=== PATIENT | male | born 1975 | race Caucasian/White ===

== ENCOUNTER 2022-01-07 16:18 | Emergency (ER) | payer BC, SELFPAY ==
--- NOTE | ~2022-01-07 | CT_ITS ---
EXAMINATION: CT SOFT TISSUE NECK WITH CONTRAST CLINICAL INFORMATION: Neck swelling, concern for abscess COMPARISON: None. TECHNIQUE: Following the administration of 60 mL of Omnipaque 300 intravenous contrast, helical imaging was performed in the axial plane with generation of coronal and sagittal reformatted images. This CT examination was performed using dose optimization techniques as appropriate, variously including the following: *Automated exposure control. *Adjustment of mA and/or kV according to patient size (this includes techniques or standardized protocols for targeted exams where dose is matched to indication/reason for exam; i.e. extremities or head). *Use of iterative reconstruction technique. DLP: 908 mGy-cm. FINDINGS: Nasopharynx/skull base: The fat planes of the skull base and soft tissues of the nasopharynx are unremarkable. The mastoids are well aerated. Mild maxillary sinus mucosal thickening. The temporomandibular joints are normal. Suprahyoid neck: The oropharynx and oral cavity appear unremarkable. Normal appearance of the parotid glands. The bilateral submandibular glands appear enlarged with heterogeneous enhancement with slightly increased hyperenhancement on the left. No evidence of obstructing sialolith. There are adjacent soft tissue inflammatory changes with thickening of the bilateral platysma muscles and subcutaneous stranding in the anterior subcutaneous fat of the suprahyoid neck in the submandibular/submental region. No discrete rim-enhancing fluid collection is identified. Infrahyoid neck: The hypopharynx and larynx are unremarkable. No aerodigestive tract mass. Thyroid: The thyroid gland is normal. Lymph nodes: There is no cervical chain lymphadenopathy. Prominent number of nonpathologically enlarged submental and submandibular lymph nodes are likely reactive. Lung apices: The partially visualized lung apices are clear. Vascular structures: No hemodynamically significant stenosis, dissection, or occlusion. Osseous structures: The osseous structures are intact without suspicious focal lesion. Other: The imaged portions of the brain parenchyma are unremarkable. CT/CT soft tissue neck w IV con IMPRESSION: 1. Bilateral submandibular gland enlargement and heterogeneous enhancement, likely reflecting sialoadenitis. No evidence of obstructing sialolithiasis. 2. Inflammatory changes in the submandibular/submental soft tissues of the suprahyoid neck which may reflect cellulitic change. No evidence of abscess.
[2022-01-07 16:50] VITALS: BP 151/116; PULSE 92; RESP 18; TEMP 36.6; O2SAT 97; BMI 36.9
--- NOTE | 2022-01-07 17:01 | ED_ITS ---
HPI - General Adult General Chief complaint: General Medical <NARDA Cramer - Last Filed: 01/07/22 17:59> Stated complaint: swollen lymph nodes <NARDA Cramer - Last Filed: 01/07/22 17:59> Time Seen by Provider: 01/07/22 17:01 <NARDA Cramer - Last Filed: 01/07/22 17:59> Source: patient <NARDA Cramer Last Filed: 01/07/22 17:59> Mode of arrival: ambulatory <NARDA Cramer Last Filed: 01/07/22 17:59> Limitations: no limitations <NARDA Cramer Last Filed: 01/07/22 17:59> History of Present Illness HPI narrative: Patient is a 46 year old assigned male at with no reported medical history presenting to the emergency department today with swollen lymph nodes in his neck. Patient states that he was seen at an Urgent Care last week for a sore throat and was positive for influenza A. Patient states that he was given Tamiflu and was feeling better but his throat is still bothering him. Patient states that he noticed he had node swelling in his neck, left more than right. Patient states that he went back to the Urgent Care and they recommended the he come to the Emergency Department to be evaluated and possibly get his neck scanned. Patient denies any difficulty swallowing or hoarseness of his voice. Patient denies any dizziness, lightheadedness, abdominal pain, nausea, vomiting, fever, chills, blurry vision, double vision, loss of vision, chest pain, difficulty breathing, shortness of breath, back pain, night sweats, pain with urination, increased urinary frequency, increased urinary urgency, blood in his urine or stool, syncope or a near syncopal episode, recent trauma or falls, bowel incontinence, bladder incontinence, bowel retention, bladder retention, or any other complaints at this time. <NARDA Cramer Last Filed: 01/07/22 17:59> Onset (ago): day(s) <NARDA Cramer - Last Filed: 01/07/22 17:59> Location: neck <NARDA Cramer Last Filed: 01/07/22 17:59> Radiation: non-radiation <NARDA Cramer - Last Filed: 01/07/22 17:59> Severity: mild <NARDA Cramer - Last Filed: 01/07/22 17:59> Severity scale (1-10): 3 <NARDA Cramer - Last Filed: 01/07/22 17:59> Relieving factors: none <NARDA Cramer - Last Filed: 01/07/22 17:59> Exacerbating factors: none <NARDA Cramer - Last Filed: 01/07/22 17:59> Associated symptoms: denies other symptoms <NARDA Cramer - Last Filed: 01/07/22 17:59> Treatments prior to arrival: none <NARDA Cramer - Last Filed: 01/07/22 17:59> Related Data Home medications: Previous Rx's Medication Instructions Recorded cephalexin 500 mg capsule 500 mg PO Q6H 7 days #28 caps 01/07/22 doxycycline hyclate 100 mg tablet 100 mg PO BID #14 tabs 01/07/22 <NARDA Cramer - Last Filed: 01/07/22 17:59> Allergies/adverse reactions: Allergies Allergy/AdvReac Type Severity Reaction Status Date / Time No Known Allergies Allergy Unverified 11/04/19 16:07 [No Known Allergies*] <NARDA Cramer - Last Filed: 01/07/22 17:59> Review of Systems Constitutional: Constitutional: Reports no additional constitutional complaints, Denies chills, Denies fever(s) and Denies night sweats <NARDA Cramer - Last Filed: 01/07/22 17:59> Eyes: Eyes: Reports no additional eye complaints, Denies blurry vision, Denies change in vision, Denies diplopia, Denies eye discharge, Denies loss of vision and Denies eye pain <NARDA Cramer - Last Filed: 01/07/22 17:59> ENT: Denies dizziness and Reports sore throat <NARDA Cramer - Last Filed: 01/07/22 17:59> Comments: neck lymph node swelling <NARDA Cramer - Last Filed: 01/07/22 17:59> Cardiovascular: Cardiovascular: Reports no additional cardiovascular complaints, Denies chest pain, Denies lightheadedness, Denies Loss of Consciousness and Denies dyspnea <NARDA Cramer Last Filed: 01/07/22 17:59> Respiratory: Respiratory: Reports no additional respiratory complaints and Denies dyspnea <NARDA Cramer Last Filed: 01/07/22 17:59> Gastrointestinal: Gastrointestinal: Reports no additional gastrointestinal complaints, Denies abdominal pain, Denies melena, Denies hematochezia, Denies change in bowel habits and Denies change in stool character <NARDA Cramer Last Filed: 01/07/22 17:59> Genitourinary: Genitourinary: Reports no additional male genitourinary compl aints, Denies hematuria, Denies oliguria, Denies difficulty urinating, Denies dysuria, Denies urinary frequency, Denies urinary hesitancy, Denies urinary incontinence and Denies urinary urgency <NARDA Cramer Last Filed: 01/07/22 17:59> Musculoskeletal: Musculoskeletal: Reports no additional musculoskeletal c omplaints, Denies numbness and Denies tingling <NARDA Cramer Last Filed: 01/07/22 17:59> Neurologic: Denies dizziness, Denies loss of vision, Denies numbness and Denies tingling <NARDA Cramer Last Filed: 01/07/22 17:59> Psychiatric: Psychiatric: Reports no additional psychiatric complaints <NARDA Cramer Last Filed: 01/07/22 17:59> Endocrine: Endocrine: Reports no additional endocrine complaints <NARDA Cramer Last Filed: 01/07/22 17:59> Hematologic/Lymphatic: Hematologic/Lymphatic: Reports no additional hematologic/lymphatic complaints <NARDA Cramer Last Filed: 01/07/22 17:59> Allergic/Immunologic: Allergic/Immunologic: Reports no additional allergic/immunologic complaints <NARDA Cramer Last Filed: 01/07/22 17:59> PMFSH Past Medical History Attestation statement: The following information was validated with the patient. <NARDA Cramer Last Filed: 01/07/22 17:59> Source: old records reviewed <NARDA Cramer Last Filed: 01/07/22 17:59> Social History Social History: Social History Advance Directives: No Advance Directives Information Provided: Yes <NARDA Cramer - Last Filed: 01/07/22 17:59> Physical Exam ED Vital Signs: Vital Signs - 24 hr 01/07/22 16:50 Temperature 97.8 F Pulse Rate 92 Respiratory Rate 18 Blood Pressure 151/116 H Pulse Oximetry 97 Oxygen Delivery Method Room Air BMI result Body Mass Index 36.9 <NARDA Cramer - Last Filed: 01/07/22 17:59> Vital Signs - 24 hr 01/07/22 16:50 Temperature 97.8 F Pulse Rate 92 Respiratory Rate 18 Blood Pressure 151/116 H Pulse Oximetry 97 Oxygen Delivery Method Room Air BMI result Body Mass Index 36.9 <NARDA Sanchez - Last Filed: 01/07/22 19:52> Const General: cooperative, no acute distress, alert and awake <NARDA Cramer - Last Filed: 01/07/22 17:59> Nutritional Appearance: well nourished <NARDA Cramer - Last Filed: 01/07/22 17:59> Orientation/consciousness: patient oriented x3 <NARDA Cramer - Last Filed: 01/07/22 17:59> Limitations: no limitations <NARDA Cramer - Last Filed: 01/07/22 17:59> HENMT Head: Yes normal to inspection and Yes atraumatic <NARDA Cramer - Last Filed: 01/07/22 17:59> Ears: hearing grossly normal bilaterally and external ears normal <NARDA Cramer - Last Filed: 01/07/22 17:59> General nose exam: Normal external nose present, no nasal discharge noted and no epistaxis <NARDA Cramer - Last Filed: 01/07/22 17:59> Face and sinus: Yes normal facial exam, No abrasion and No laceration <NARDA Cramer Last Filed: 01/07/22 17:59> Mouth: Normal oral and palatal mucosa present, no drooling and no muffled voice <NARDA Cramer - Last Filed: 01/07/22 17:59> Eyes General: appearance normal, both eyes and all related structures <Bonnie Alvarez PA - Last Filed: 01/07/22 17:59> Periorbital: periorbital findings normal <Bonnie Alvarez PA - Last Filed: 01/07/22 17:59> Eyelids: Yes eyelids normal <Bonnie Alvarez PA - Last Filed: 01/07/22 17:59> Conjunctivae: conjunctivae normal <Bonnie Alvarez PA - Last Filed: 01/07/22 17:59> Pupils: Equal, round and reactive pupils present <Bonnie Alvarez, PA - Last Filed: 01/07/22 17:59> EOM: EOMs intact bilaterally <Bonnie Alvarez PA - Last Filed: 01/07/22 17:59> Neck Neck: Yes normal visual inspection, Yes full ROM and Yes lymphadenopathy (bilateral, left worse than right) <Bonnie Alvarez PA - Last Filed: 01/07/22 17:59> Chest Chest palpation & inspection: normal inspection of the chest <Bonnie Alvarez PA - Last Filed: 01/07/22 17:59> Resp Effort & Inspection: normal respiratory effort and able to speak in complete sentences <Bonnie Alvarez PA - Last Filed: 01/07/22 17:59> GI Inspection: Yes normal to inspection <Bonnie Alvarez PA - Last Filed: 01/07/22 17:59> Neuro General: patient oriented x3 and moves all extremities <Bonnie Avlarez PA - Last Filed: 01/07/22 17:59> Cranial nerves: Yes Equal, round and reactive pupils present <Bonnie Alvarez PA - Last Filed: 01/07/22 17:59> Cognition (Neuro): normal cognition <Bonnie Alvarez PA - Last Filed: 01/07/22 17:59> Motor exam (neuro): 5/5 motor strength present throughout <Bonnie Alvarez PA - Last Filed: 01/07/22 17:59> Sensory Exam: Normal double simultaneous stimulation for sensation <Bonnie Alvarez PA - Last Filed: 01/07/22 17:59> Coordination: [id number] test normal <Bonnie Alvarez PA - Last Filed: 01/07/22 17:59> Extrem General: Yes normal to inspection, Yes full ROM and Yes capillary refill normal <NARDA Cramer - Last Filed: 01/07/22 17:59> Psych Appearance: grossly normal <NARDA Cramer - Last Filed: 01/07/22 17:59> Mental Status: mental status grossly normal <NARDA Cramer Last Filed: 01/07/22 17:59> Affect: normal affect <NARDA Cramer - Last Filed: 01/07/22 17:59> Attitude: cooperative <NARDA Cramer - Last Filed: 01/07/22 17:59> Thought process: Normal thought process present <NARDA Cramer Last Filed: 01/07/22 17:59> Thought content: Normal thought content present <NARDA Cramer Last Filed: 01/07/22 17:59> Insight: Good insight present (Psych) <NARDA Cramer Last Filed: 01/07/22 17:59> Course Course Course Narrative: CT scan showing 1.? Bilateral submandibular gland enlargement and heterogeneous enhancement, likely reflecting sialoadenitis. No evidence of obstructing sialolithiasis. ? 2.? Inflammatory changes in the submandibular/submental soft tissues of the suprahyoid neck which may reflect cellulitic change. No evidence of abscess Influenza is positive. Other lab work is remarkable. Given patient's swelling and CT scan findings, will start empiric antibiotics for possible developing cellulitis. His airway is patent and he is speaking normally. He was given strict return precautions to come back if anything were to get worse or he were to have any difficulty speaking or swallowing. Comfortable discharge home. Stable for DC. <NARDA Sanchez - Last Filed: 01/07/22 19:52> Medications Administered Discontinued Medications Generic Name Dose Route Start Last Admin Trade Name Freq PRN Reason Stop Dose Admin Iohexol 100 ml 01/07/22 18:22 01/07/22 18:22 Iohexol 350 Mg/Ml 100 Ml Infus..Btl IV 01/07/22 18:23 60 ml ONCE ONE Administration <NARDA Cramer Last Filed: 01/07/22 17:59> Medications Administered Discontinued Medications Generic Name Dose Route Start Last Admin Trade Name Freq PRN Reason Stop Dose Admin Iohexol 100 ml 01/07/22 18:22 01/07/22 18:22 Iohexol 350 Mg/Ml 100 Ml Infus..Btl IV 01/07/22 18:23 60 ml ONCE ONE Administration <NARDA Sanchez - Last Filed: 01/07/22 19:52> Medical Decision Making MDM Narrative Medical decision making narrative: Patient is a 46 year old assigned male at with no reported medical history presenting to the emergency department today with neck lymphadenopathy. Patient's physical exam showed cervical lymphadenopathy, left worse than right with no voice hoarseness or difficulty tolerating his own secretons. Patient's CBC was unremarkable. Patient's CMP is pending. Patient's CT soft tissue neck is pending. Patient signed out to Jojo Porter PA-C. <NARDA Cramer - Last Filed: 01/07/22 17:59> Medical Records Medical records reviewed: Yes I reviewed the patient's medical records. <NARDA Cramer - Last Filed: 01/07/22 17:59> Lab Data Lab results reviewed: Yes I reviewed the patient's lab results. <NARDA Cramer - Last Filed: 01/07/22 17:59> Result diagrams: : 01/07/22 17:31 01/07/22 17:31 <NARDA Cramer - Last Filed: 01/07/22 17:59> Labs: Lab Results 01/07/22 01/07/22 01/07/22 Range/Units 17:31 17:31 17:31 WBC 6.7 (4.8-10.8) X10*3/uL RBC 5.77 (4.60-5.80) X10*6/uL Hgb 17.2 (14.0-18.0) g/dl Hct 51.4 (42.0-52.0) % MCV 89.1 (80.0-98.0) fL MCH 29.8 (27.0-33.0) pg MCHC 33.5 (31.0-36.0) g/dl RDW 12.3 (11.0-16.0) % Plt Count 214 (160-400) X10*3/uL MPV 9.5 (9.4-12.4) fL Absolute Nucleated RBC 0.000 (0.0-0.012) X10*3/uL Nucleated RBC % (auto) 0.0 (0.0-0.2) /100WBC ESR (0-15) MM/HR Sodium (135-145) mmol/L Potassium (3.3-5.1) mmol/L Chloride (96-108) mmol/L Carbon Dioxide (22-29) mmol/L Anion Gap (12-20) BUN (9-16) mg/dL Creatinine (0.5-1.4) mg/dL Estim Creat Clear Calc Estimated GFR Random Glucose (60-115) mg/dL Calcium (8.4-10.2) mg/dL Total Bilirubin (0.0-1.0) mg/dL AST (5-37) U/L ALT (0-40) U/L Alkaline Phosphatase (39-117) U/L C-Reactive Protein (< or = 0.50) mg/dL Total Protein (6.5-8.0) g/dL Albumin (3.5-5.0) g/dL TSH (0.32-4.0) uIU/mL COVID-19 (LUCAS) Negative (Negative) COVID-19 Clin Com See Note Influenza Type A (JOVANNI) Positive A (Negative) Influenza Type B (JOVANNI) Negative (Negative) Influenza A & B Note See Note 01/07/22 01/07/22 Range/Units 17:31 17:31 WBC (4.8-10.8) X10*3/uL RBC (4.60-5.80) X10*6/uL Hgb (14.0-18.0) g/dl Hct (42.0-52.0) % MCV (80.0-98.0) fL MCH (27.0-33.0) pg MCHC (31.0-36.0) g/dl RDW (11.0-16.0) % Plt Count (160-400) X10*3/uL MPV (9.4-12.4) fL Absolute Nucleated RBC (0.0-0.012) X10*3/uL Nucleated RBC % (auto) (0.0-0.2) /100WBC ESR 8 (0-15) MM/HR Sodium 140 (135-145) mmol/L Potassium 3.9 (3.3-5.1) mmol/L Chloride 104 (96-108) mmol/L Carbon Dioxide 25 (22-29) mmol/L Anion Gap 15 (12-20) BUN 13 (9-16) mg/dL Creatinine 0.82 (0.5-1.4) mg/dL Estim Creat Clear Calc 160.5 Estimated GFR > 60 Random Glucose 86 (60-115) mg/dL Calcium 9.4 (8.4-10.2) mg/dL Total Bilirubin 0.2 (0.0-1.0) mg/dL AST 35 (5-37) U/L ALT 57 H (0-40) U/L Alkaline Phosphatase 84 (39-117) U/L C-Reactive Protein 3.27 H (< or = 0.50) mg/dL Total Protein 7.8 (6.5-8.0) g/dL Albumin 4.8 (3.5-5.0) g/dL TSH 7.08 H (0.32-4.0) uIU/mL COVID-19 (LUCAS) (Negative) COVID-19 Clin Com Influenza Type A (JOVANNI) (Negative) Influenza Type B (JOVANNI) (Negative) Influenza A & B Note <NARDA Cramer - Last Filed: 01/07/22 17:59> Lab Results 01/07/22 01/07/22 01/07/22 Range/Units 17:31 17:31 17:31 WBC 6.7 (4.8-10.8) X10*3/uL RBC 5.77 (4.60-5.80) X10*6/uL Hgb 17.2 (14.0-18.0) g/dl Hct 51.4 (42.0-52.0) % MCV 89.1 (80.0-98.0) fL MCH 29.8 (27.0-33.0) pg MCHC 33.5 (31.0-36.0) g/dl RDW 12.3 (11.0-16.0) % Plt Count 214 (160-400) X10*3/uL MPV 9.5 (9.4-12.4) fL Absolute Nucleated RBC 0.000 (0.0-0.012) X10*3/uL Nucleated RBC % (auto) 0.0 (0.0-0.2) /100WBC ESR (0-15) MM/HR Sodium (135-145) mmol/L Potassium (3.3-5.1) mmol/L Chloride (96-108) mmol/L Carbon Dioxide (22-29) mmol/L Anion Gap (12-20) BUN (9-16) mg/dL Creatinine (0.5-1.4) mg/dL Estim Creat Clear Calc Estimated GFR Random Glucose (60-115) mg/dL Calcium (8.4-10.2) mg/dL Total Bilirubin (0.0-1.0) mg/dL AST (5-37) U/L ALT (0-40) U/L Alkaline Phosphatase (39-117) U/L C-Reactive Protein (< or = 0.50) mg/dL Total Protein (6.5-8.0) g/dL Albumin (3.5-5.0) g/dL TSH (0.32-4.0) uIU/mL COVID-19 (LUCAS) Negative (Negative) COVID-19 Clin Com See Note Influenza Type A (JOVANNI) Positive A (Negative) Influenza Type B (JOVANNI) Negative (Negative) Influenza A & B Note See Note 01/07/22 01/07/22 Range/Units 17:31 17:31 WBC (4.8-10.8) X10*3/uL RBC (4.60-5.80) X10*6/uL Hgb (14.0-18.0) g/dl Hct (42.0-52.0) % MCV (80.0-98.0) fL MCH (27.0-33.0) pg MCHC (31.0-36.0) g/dl RDW (11.0-16.0) % Plt Count (160-400) X10*3/uL MPV (9.4-12.4) fL Absolute Nucleated RBC (0.0-0.012) X10*3/uL Nucleated RBC % (auto) (0.0-0.2) /100WBC ESR 8 (0-15) MM/HR Sodium 140 (135-145) mmol/L Potassium 3.9 (3.3-5.1) mmol/L Chloride 104 (96-108) mmol/L Carbon Dioxide 25 (22-29) mmol/L Anion Gap 15 (12-20) BUN 13 (9-16) mg/dL Creatinine 0.82 (0.5-1.4) mg/dL Estim Creat Clear Calc 160.5 Estimated GFR > 60 Random Glucose 86 (60-115) mg/dL Calcium 9.4 (8.4-10.2) mg/dL Total Bilirubin 0.2 (0.0-1.0) mg/dL AST 35 (5-37) U/L ALT 57 H (0-40) U/L Alkaline Phosphatase 84 (39-117) U/L C-Reactive Protein 3.27 H (< or = 0.50) mg/dL Total Protein 7.8 (6.5-8.0) g/dL Albumin 4.8 (3.5-5.0) g/dL TSH 7.08 H (0.32-4.0) uIU/mL COVID-19 (LUCAS) (Negative) COVID-19 Clin Com Influenza Type A (JOVANNI) (Negative) Influenza Type B (JOVANNI) (Negative) Influenza A & B Note <NARDA Sanchez - Last Filed: 01/07/22 19:52> Discharge Plan Discharge Clinical Impression: Lymphadenopathy, Influenza A, Sialadenitis <NARDA Cramer - Last Filed: 01/07/22 17:59> Patient Disposition: Home, Self-Care <NARDA Cramer - Last Filed: 01/07/22 17:59> Instructions: Influenza (ED), Sialoadenitis (ED) <NARDA Cramer - Last Filed: 01/07/22 17:59> Additional Instructions: Your lab workup today was unremarkable. You tested positive for influenza A. Continue Tamiflu. CT scan showed: 1.? Bilateral submandibular gland enlargement and heterogeneous enhancement, likely reflecting sialoadenitis. No evidence of obstructing sialolithiasis. ? 2.? Inflammatory changes in the submandibular/submental soft tissues of the suprahyoid neck which may reflect cellulitic change. No evidence of abscess Take the prescribed antibiotics for possible developing infection of the skin. If you develop new or worsening symptoms call 911 or come back to the ER for further evaluation. <NARDA Cramer - Last Filed: 01/07/22 17:59> Prescriptions: New doxycycline hyclate 100 mg tablet 100 mg PO BID Qty: 14 0RF cephalexin 500 mg capsule 500 mg PO Q6H 7 Days Qty: 28 0RF <NARDA Cramer - Last Filed: 01/07/22 17:59> Stand Alone Forms: Work/School Release <NARDA Cramer - Last Filed: 01/07/22 17:59>
[2022-01-07 17:37] LABS: Hematocrit 51.4 % (42.0-52.0); Hemoglobin 17.2 g/dl (14.0-18.0); Mean Corpuscular HGB Conc 33.5 g/dl (31.0-36.0); Mean Corpuscular Hemoglobin 29.8 pg (27.0-33.0); Mean Corpuscular Volume 89.1 fL (80.0-98.0); Mean Platelet Volume 9.5 fL (9.4-12.4); Platelet Count 214 X10*3/uL (160-400); Red Blood Count 5.77 X10*6/uL (4.60-5.80); Red Cell Distribution Width 12.3 % (11.0-16.0); White Blood Count 6.7 X10*3/uL (4.8-10.8)
[2022-01-07 17:57] LABS: COVID-19 Test Negative (Negative); IDNOW Serial# 9DB6401D; IDNOW Serial# BCCEAD1C; Influenza A Positive (Negative); Influenza B2 Negative (Negative)
[2022-01-07 18:09] LABS: Alanine Aminotransferase 57 U/L (0-40); Albumin Level 4.8 g/dL (3.5-5.0); Alkaline Phosphatase 84 U/L (39-117); Anion Gap 15 (12-20); Aspartate Amino Transferase 35 U/L (5-37); Bilirubin Total 0.2 mg/dL (0.0-1.0); Blood Urea Nitrogen 13 mg/dL (9-16); C Reactive Protein 3.27 mg/dL (< or = 0.50); Calcium 9.4 mg/dL (8.4-10.2); Carbon Dioxide 25 mmol/L (22-29); Chloride 104 mmol/L (96-108); Creatinine Clr Calc Pharmacy 160.5; Estimated Glomerular Filt Rate > 60; Glucose Random 86 mg/dL (60-115); Potassium 3.9 mmol/L (3.3-5.1); Sodium 140 mmol/L (135-145); Total Protein 7.8 g/dL (6.5-8.0)
[2022-01-07 18:20] LABS: Erythrocyte Sedimentation Rate 8 MM/HR (0-15)
[2022-01-07] MEDS: iohexoL 350 MG/ML 100 ML INFUS..BTL IV (18:22)
[2022-01-07 18:29] LABS: TSH reflex Free T4 7.08 uIU/mL (0.32-4.0)
[2022-01-07] MEDS: dexAMETHasone 2 MG TABLET 10 MG PO (19:56)
[2022-01-07] MEDS: Doxycycline Monohydrate 100 MG CAPSULE PO (19:57)
[2022-01-07] MEDS: cephALEXin 500 MG CAPSULE PO (19:57)
[2022-01-07 20:00] LABS: Free T4 (Free Thyroxine) 0.88 ng/dL (0.71-1.85)
== END 2022-01-07 20:01 | disposition home or self-care (01) ==
PROVIDERS: Physician Assistant Medical; Emergency Provider Internal Medicine
DX: J10.1 Influenza due to other identified influenza virus with other respiratory manifestations (principal); R59.1 Generalized enlarged lymph nodes; K11.20 Sialoadenitis, unspecified; Z20.822 Contact with and (suspected) exposure to COVID-19
CPT/HCPCS: 36415; 70491; 80053; 84439; 84443; 85027; 85652; 86140; 87502; 87635; 99282; 99284; J8540; Q9967

== ENCOUNTER 2023-07-09 19:07 | Emergency (ER) | payer BC, SELFPAY ==
[2023-07-09 20:13] VITALS: BP 142/97; PULSE 91; RESP 16; TEMP 36.8; O2SAT 96; BMI 37.3
[2023-07-10 00:20] VITALS: BP 129/90; PULSE 68; RESP 18; TEMP 36.6; O2SAT 97
--- NOTE | 2023-07-10 01:15 | ED.HA ---
HPI - Headache General Chief Complaint: Headache Stated Complaint: lump on back of neck and headaches Time Seen by Provider: 07/10/23 01:15 Source: patient Mode of arrival: ambulatory Limitations: no limitations History of Present Illness HPI Narrative: Patient has been complaining of left occipital headache for while off and on no nausea no vomiting no light sensitivity feels small bump under the skin Related Data Previous Rx's ?Medication ?Instructions ?Recorded cephalexin 500 mg capsule 500 mg PO Q6H 7 days #28 caps 01/07/22 doxycycline hyclate 100 mg tablet 100 mg PO BID #14 tabs 01/07/22 mfymkfcgyt-pisvvbvbozlln-vcdrpknm 1 tab PO Q6H PRN haeadace #20 tabs 07/10/23 50 mg-325 mg-40 mg tablet Allergies Allergy/AdvReac Type Severity Reaction Status Date / Time No Known Allergies Allergy Unverified 07/09/23 20:15 [No Known Allergies*] Review of Systems Review of Systems: Yes all other systems are reviewed and are negative [facility] Social History Social History Smoked in Last 30 Days: No Advance Directives: No Advance Directives Information Provided: No Do you have a plan to hurt others: No Plan Physical Exam Vital Signs: Vital Signs: Last Vital Signs Temp 97.8 F 07/10/23 00:20 Pulse 68 07/10/23 00:20 Resp 18 07/10/23 00:20 BP 129/90 H 07/10/23 00:20 Pulse Ox 97 07/10/23 00:20 O2 Del Method Room Air 07/10/23 00:20 BMI result Body Mass Index 37.3 Appearance: Alert. Oriented X3. No acute distress. Eyes: PERRLA, No Nystagmus ENT: Pharynx normal. Oral Mucosa moist slight tenderness at left occipital area Neck: Normal inspection. Neck supple. CVS: Normal heart rate and rhythm. Pulses normal. Respiratory: No respiratory distress. Equal air entry bilateral, no wheezing/rales/rhonchi Abdomen: Soft and nontender. Bowel sounds are present, no mass palpable, no CVA tenderness Skin: Skin warm and dry. Normal skin color. Normal skin turgor. Extremities: No lower extremity edema. No calf tenderness Neuro: Oriented X 3. No motor deficit. No sensory deficit.No cerebellar signs , cranial nerves II-XII intact Medical Decision Making Medical Decision Making MDM Narrative: Patient with likely left occipital neuralgia/migraine headache no signs of infection will discharge patient home on Fioricet advised to follow with neurologist Discharge Plan Discharge Clinical Impression: Occipital neuralgia of left side Patient Disposition: Home, Self-Care Instructions: Acute Headache (ED) Additional Instructions: Likely have a occipital neuralgia//occipital migraine headache Fioricet 1 tablet every 6 hours as needed for pain Follow with PCP/neurologist Prescriptions: New wnfwxmjnlb-blinnnhttjdll-rpnw 50-325-40 mg tablet 1 tab PO Q6H PRN (Reason: haeadace) Qty: 20 0RF No Action doxycycline hyclate 100 mg tablet 100 mg PO BID Qty: 14 0RF cephalexin 500 mg capsule 500 mg PO Q6H 7 Days Qty: 28 0RF Referrals: Julius Crowder MD [Physician] - 2 weeks Stand Alone Forms: Work/School Release Print Language: Wallisian
--- NOTE | 2023-07-10 01:32 | MHC.EDTECH ---
Late entry, patient came in from waiting room,changed into hospital attire,hourly rounds and vitals completed,family at bedside and call bajwa in reach
[2023-07-10 01:39] VITALS: BP 140/89; PULSE 75; RESP 18; TEMP 36.6; O2SAT 97
[2023-07-10] MEDS: Butalb/Acetamin/Caff 50/325/40 TABLET 1 TAB PO (01:40)
--- NOTE | 2023-07-10 01:40 | MHC.EDTECH ---
Vitals taken and is awaiting discharge at this time.
[2023-07-10 02:00] VITALS: BP 140/89; PULSE 75; RESP 18; TEMP 36.6; O2SAT 97
== END 2023-07-10 02:02 | disposition home or self-care (01) ==
PROVIDERS: Emergency Provider Internal Medicine
DX: M79.2 Neuralgia and neuritis, unspecified (principal); R51.9 Headache, unspecified; R11.0 Nausea
CPT/HCPCS: 99283; 99284